=== PATIENT | male | born 1975 | race Caucasian/White ===

== ENCOUNTER 2016-05-10 08:03 | Emergency (ER) | payer BC, MEDICAID ==
[2016-05-10 08:21] VITALS: BP 128/81
--- NOTE | 2016-05-10 10:44 | RAD ---
INDICATION: Left lower quadrant pain. Hematuria. COMPARISON: None TECHNIQUE: Noncontrast axial source images were acquired from the level hemidiaphragms to the symphysis pubis as part of CT imaging for renal stone. Lung bases: The lung bases are clear. Liver: The liver is enlarged with findings of hepatic steatosis. Noncontrast imaging shows no evidence of a hepatic mass or ductal dilatation. Gallbladder: The gallbladder is contracted. There are no calcified gallstones. Spleen: The spleen is normal in size. The noncontrast CT appearance is normal. Pancreas: Noncontrast imaging shows no pancreatic mass or ductal dilitation. Adrenal glands: No masses are identified. Kidneys/Bladder: There is no evidence of nephrolithiasis or CT evidence of hydronephrosis. Noncontrast imaging shows no evidence of a renal mass. The bladder is unremarkable.. Adenopathy: There is no evidence of intraperitoneal or retroperitoneal adenopathy. Evaluation is limited without oral contrast. Fluid collections: There are no free or localized fluid collections. Vessels: The aorta and iliac vessels are normal in caliber. There are no significant atherosclerotic changes. The IVC appears normal Pelvic organs: The prostate and seminal vesicles appear normal GI tract: Evaluation of the bowel is limited without oral contrast. The upper GI tract is unremarkable. There are scattered diverticula of the colon. There is mural thickening and there is infiltration of the mesenteric fat at the level of the mid to distal descending colon. The findings most consistent with acute diverticulitis. There are no findings of obstruction or perforation. The cecum, ileocecal valve, and appendix are normal. Soft tissues: No soft tissue abnormalities of the extraperitoneal abdomen or pelvis are identified. Osseous structures: There are no acute osseous findings. IMPRESSION: CT FINDINGS MOST CONSISTENT WITH ACUTE DIVERTICULITIS OF THE DISTAL DESCENDING COLON.
--- NOTE | 2016-05-10 16:32 | UC ---
Shari Whitt Alok, scribed for Chula Hwang MD on 05/10/16 at 0856 . Abdominal Pain Male HPI - HPI Summary HPI Summary: 40 y/o male presents to the for LLQ abdominal pain. Pt states that pain began last night at about 2030 following a fatty meal. Pain is described as "sharp", waxing and waning in intensity, and kept the pt awake throughout the night. Pain radiates to the suprapubic and RLQ. Pt states that pain is aggravated by movement. Pt adds chills in his extremities, and increased urine frequency. Pt denies any N/V/D, or dysuria. His last BM was last night at approximately 0300 and was normal. Pt has no hx of nephrolithiasis. Pt took no medications [employer] and declines any pain medications at this time. - History of Current Complaint Chief Complaint: UCAbdominalPain Stated Complaint: STOMACH PAIN Hx Obtained From: Patient Onset/Duration: Gradual Onset, Lasting Hours, Still Present Timing: Constant Severity Initially: Moderate Severity Currently: Moderate Pain Intensity: 6 Pain Scale Used: 0-10 Numeric Location: Discrete At: LLQ Radiates: Yes Radiates to: RLQ - And Suprapubic Character: Sharp Aggravating Factor(s):: Movement Alleviating Factor(s): Nothing Associated Signs And Symptoms: Positive: Urinary Symptoms - Increased Frequency. Negative: Dysuria, Other - Chills in extremities. Negative: Constipation, Nausea, Vomiting, Diarrhea - Risk Factors Testicular Torsion: Negative - Allergies/Home Medications Allergies/Adverse Reactions: Allergies Allergy/AdvReac Type Severity Reaction Status Date / Time No Known Allergies Allergy Verified 05/10/16 08:11 PMH/Surg Hx/FS Hx/Imm Hx Previously Healthy: Yes - Surgical History Surgical History: None - Family History Known Family History: Positive: Cardiac Disease - MOTHERS SIDE HEART ATTACKS Negative: Respiratory Disease - Social History Alcohol Use: Occasionally Alcohol Amount: 4/5 drinks q 2 weeks. Substance Use Type: None Smoking Status (MU): Former Smoker When Did the Patient Quit Smoking/Using Tobacco: 2009 Review of Systems Constitutional: Chills - Extremities Skin: Negative Gastrointestinal: Abdominal Pain - LLQ Genitourinary: Frequency All Other Systems Reviewed And Are Negative: Yes Physical Exam Triage Information Reviewed: Yes Appearance: No Pain Distress, Well-Nourished, Ill-Appearing - mild Vital Signs: Initial Vital Signs Temp 98.6 F 05/10/16 08:12 Pulse 113 05/10/16 08:12 Resp 16 05/10/16 08:12 BP 128/81 05/10/16 08:12 Pulse Ox 97 05/10/16 08:12 Vital Signs Reviewed: Yes Eyes: Positive: Conjunctiva Clear ENT: Positive: Normal ENT inspection Neck: Positive: Supple Respiratory: Positive: Lungs clear, Normal breath sounds, No respiratory distress Cardiovascular: Positive: RRR, No Murmur, Pulses Normal, Brisk Capillary Refill Abdomen Description: Positive: No Organomegaly, Soft, Other: - LLQ tenderness without guarding or rebound. Negative: CVA Tenderness (R), CVA Tenderness (L), Distended, Guarding, Hernia @, Hepatomegaly, McBurney's Point Tenderness, Peritoneal Signs, Pulsatile Mass, Splenomegaly Bowel Sounds: Positive: Present Musculoskeletal: Positive: Strength Intact, ROM Intact Neurological: Positive: Alert, Muscle Tone Normal Psychological Exam: Normal Skin Exam: Normal Diagnostics - Laboratory Diagnostic Studies Completed/Ordered: Urines - POC Urine Blood: 1+ H - Radiology Abd/Pel CT Xray Interpretation: Positive (See Comments) - IMPRESSION: CT FINDINGS MOST CONSISTENT WITH ACUTE DIVERTICULITIS OF THE DISTAL DESCENDING COLON. hepatic steatotosis Radiology Interpretation Completed By: Radiologist Re-Evaluation - Re-Evaluation First Eval Re-Evaluation Time: 10:05 - back from CT;Pain is a 4. ambulatory Change: Unchanged Abd Pain Male Course/Dx - Course Course Of Treatment: UA shows 1+ blood. Will do CT, renal stone protocol. CT shows diverticulitis. Pt is ambulatory, able to eat, not vomiting, no fever. Will advise close follow up, start antibiotics, and advise to go to ED if any worse. Discussed complications of diverticulitis with pt and he voices understanding. Also advised to follow up re microscopic hematuria. - Differential Dx/Clinical Impression Differential Diagnosis/HQI/PQRI: Bowel Obstruction, Constipation, Diverticulitis , Pancreatitis, Ureteral Stone, Urinary Tract Infection Provider Diagnoses: diverticulitis, acute. microscopic hematuria. fatty liver - Physician Notification/Consults Discussed Patient Care With: Dr Zimmerman (Gastro) @ [id number] - Dr Zimmerman will see pt in follow up Discharge - Discharge Plan Condition: Stable Disposition: HOME Prescriptions: Ciprofloxacin TAB* [Cipro 500 MG TAB*] 500 mg PO BID #20 tab Metronidazole [Flagyl 500 MG TAB] 500 mg PO QID #40 tab Patient Education Materials: Diverticulitis (ED), Low Fiber Diet (ED) Referrals: Abdoulaye Waters MD [Medical Doctor] - 2 Days (call to be seen this week ) Silas Zimmerman MD [Medical Doctor] - 2 Days (call today for an appointment ) Additional Instructions: Take the medications as directed. Eat a low fiber diet while you are ill. Go to the emergency room if you have new or worsening symptoms. The documentation as recorded by the Shari wilson Alok accurately reflects the service I personally performed and the decisions made by , Chula Hwang MD.
== END 2016-05-10 11:06 | disposition home or self-care (01) ==
LOC: UCEAST 08:03
DX: K57.32 Diverticulitis of large intestine without perforation or abscess without bleeding (principal); R31.29 Other microscopic hematuria; K76.0 Fatty (change of) liver, not elsewhere classified; Z87.891 Personal history of nicotine dependence
CPT/HCPCS: 74176; 81003; 99212; G0463

== ENCOUNTER 2016-08-10 13:15 | Emergency (ER) | payer MEDICAID, OTHER ==
[2016-08-10 14:59] VITALS: BP 131/85
--- NOTE | 2016-08-10 16:04 | UC ---
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 and it started afterwards hasn't tried any treatment denies any new foods, detergents, soaps denies fever - History of Current Complaint Chief Complaint: UCRas Stated Complaint: SKIN COMPLAINT Time Seen by Provider: 08/10/16 15:56 Hx Obtained From: Patient - Allergy/Home Medications Allergies/Adverse Reactions: Allergies Allergy/AdvReac Type Severity Reaction Status Date / Time No Known Allergies Allergy Verified 08/10/16 14:53 PMH/Surg Hx/FS Hx/Imm Hx Previously Healthy: Yes - borderline DM Endocrine History: Dyslipidemia - Surgical History Surgical History: None - Family History Known Family History: Positive: Cardiac Disease - MOTHERS SIDE HEART ATTACKS Negative: Hypertension, Diabetes, Respiratory Disease - Social History Occupation: Employed Full-time Lives: With Family Alcohol Use: Occasionally Alcohol Amount: 4/5 drinks q 2 weeks. Substance Use Type: None Smoking Status (MU): Former Smoker When Did the Patient Quit Smoking/Using Tobacco: 2009 Review of Systems Constitutional: Negative Skin: Rash Eyes: Negative ENT: Negative Respiratory: Negative Cardiovascular: Negative Gastrointestinal: Negative Genitourinary: Negative Motor: Negative Neurovascular: Negative Musculoskeletal: Negative Neurological: Negative Psychological: Negative All Other Systems Reviewed And Are Negative: Yes Physical Exam Triage Information Reviewed: Yes Appearance: No Pain Distress, Well-Nourished Vital Signs: Initial Vital Signs Temp 98.4 F 08/10/16 14:53 Pulse 87 08/10/16 14:53 Resp 16 08/10/16 14:53 BP 131/85 08/10/16 14:53 Pulse Ox 98 08/10/16 14:53 Vital Signs Reviewed: Yes Eyes: Positive: Conjunctiva Clear ENT: Positive: Pharynx normal, TMs normal Neck: Positive: No Lymphadenopathy Respiratory: Positive: Lungs clear, Normal breath sounds, No respiratory distress Cardiovascular: Positive: RRR, No Murmur, Pulses Normal Abdomen Description: Positive: Nontender, Soft Bowel Sounds: Positive: Present Musculoskeletal: Positive: No Edema Neurological: Positive: Alert Psychological Exam: Normal Skin: Positive: rashes - right forearm- scattered erythematous papules Course/Dx - Course Course Of Treatment: exam completed- no systemic symptoms or signs of infection. appears to be contact dermatitis- will treat with topical steroid cream - Differential Dx - Multi-Symptom Differential Diagnoses: Other - contact dermatitis, scabies, cellulitis Provider Diagnoses: contact dermatitis Discharge - Discharge Plan Condition: Stable Disposition: HOME Prescriptions: Hydrocortisone 1% CREAM* [Hytone Cream 1%*] 1 applic TOPICAL TID #1 tube Patient Education Materials: Contact Dermatitis (ED) Referrals: Abdoulaye Waters MD [Primary Care Provider] - Additional Instructions: Please start hydrocortisone as directed Increase fluids and rest Please review your discharge instructions. If your symptoms do not improve please call your primary care provider or return to urgent care Your blood pressure is pre-hypertensive reading. Please contact your primary care provider within 1 day -4 weeks for further evaluation.
== END 2016-08-10 16:15 | disposition home or self-care (01) ==
LOC: UCCORT 13:15
DX: L25.9 Unspecified contact dermatitis, unspecified cause (principal); E11.9 Type 2 diabetes mellitus without complications; E78.5 Hyperlipidemia, unspecified; Z87.891 Personal history of nicotine dependence; F10.10 Alcohol abuse, uncomplicated
CPT/HCPCS: 99212; G0463